=== PATIENT | male | born 1970 | race Caucasian/White ===

== ENCOUNTER → 2020-04-02 13:26 | Outpatient (CLI) | payer OTHER, SELFPAY ==
--- NOTE | ~2020-04-02 | MR_ITS ---
EXAMINATION: MR knee RT wo con DATE: 04/02/2020 14:07 INDICATION: Chronic right knee pain. TECHNIQUE: Magnetic resonance imaging (MRI) of the right knee was performed without intravenous contr ast. Sequences included coronal PD-weighted FSE, coronal PD-weighted FS FSE, sagittal T2-weighted FS E, sagittal PD-weighted FS FSE and axial PD weighted fat saturated FSE. COMPARISON: None. FINDINGS: Medial compartment: There is a small posterior body and posterior horn of the medial meniscus reflecting changes of prior partial meniscectomy. There are small foci of increased signal along the superior and inferior artic ular surface of the posterior meniscal body and along the free edge of the lateral aspect of the post erior horn likely representing residual/recurrent tiny tears. Mild partial thickness cartilage loss w ith smooth chondral surface at the central and anteromedial aspect of the medial tibial plateau. Lateral compartment: Lateral meniscus is normal. Deep chondral fissuring at the central aspect the lateral tibial plateau extending medially onto the shoulder the intercondylar eminence where there is mild underlying subart icular edema. Patellofemoral compartment: Partial-thickness chondral fissuring which in places appears to involve greater than 50% the cartilag e thickness at the inferior aspect of the medial and lateral patellar facets but without degenerative subchondral changes. Deep chondral ulceration at the trochlear groove and and medial aspect of the l ateral trochlea with small central subchondral osteophytes. Small marginal osteophytes are present at the cephalad aspect of the trochlear groove. Ligaments and tendons: Posterior cruciate ligament is normal. The anterior cruciate ligament demonstrates a normal angle rel ative to Blumenstaat's line but is thickened with prominent increased intrasubstance signal surroundi ng intact appearing linear fibers resulting in a celery stalk appearance consistent with mucoid deg eneration without definitive tear. The medial collateral ligament and fibular collateral ligament com plex are normal. Mild distal quadriceps enthesopathy with small enthesophytes at its patellar inserti on. Patellar tendon is normal. The visualized medial and lateral hamstring tendons as well as the vijaya otibial band are normal. Fluid: Physiologic amount of fluid in the joint space. No loose osteochondral bodies identified. Osseous/other: Bone alignment is normal. No fracture or pathologic marrow replacing process. Scarring consistent wit h prior arthroscopy at the medial and lateral aspects of Hoffa's fat pad. IMPRESSION: 1. Small posterior body and posterior horn of the medial meniscus likely reflecting changes of prior partial meniscectomy with a few residual/recurrent tiny tears. 2. 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 3. Mucoid degeneration of the anterior cruciate ligament without evident discrete tear. Correlate wit h physical exam to assess for degree of functional competence. Reviewed, dictated and finalized at location A. IMPRESSION: 1. Small posterior body and posterior horn of the medial meniscus likely reflec ting changes of prior partial meniscectomy with a few residual/recurrent tiny t ears. 2. Mild tricompartmental osteoarthritis with high-grade chondromalacia along th e trochlear groove and along the medial side of the lateral tibial plateau, mod erate grade patellar chondromalacia and mild ca
== END ==
PROVIDERS: Visit Provider Orthopaedic Surgery
DX: M25.561 Pain in right knee (principal); G89.29 Other chronic pain; M17.11 Unilateral primary osteoarthritis, right knee; M94.261 Chondromalacia, right knee
CPT/HCPCS: 73721